=== PATIENT | male | born 1980 | race Caucasian/White ===

== ENCOUNTER 2019-03-21 19:58 | Emergency (ER) | payer OTHER ==
[2019-03-21 20:08] VITALS: BP 107/64; PULSE 89; TEMP 98.9; BMI 32.3
--- NOTE | 2019-03-22 01:35 | PDOC ---
Documentation entered by Iliana Hendricks SCRIBE, acting as scribe for Daina Ramesh MD. Daina Ramesh MD: This documentation has been prepared by the scribe, Iliana Hendricks SCRIBE, under my direction and personally reviewed by me in its entirety. I confirm that the documentation accurately reflects all work, treatment, procedures, and medical decision making performed by me. History of Present Illness - General Chief Complaint: Injury Stated Complaint: HEAD INJURY,SCALP LACERATION History Source: Patient Exam Limitations: No Limitations - History of Present Illness Initial Comments: 03/21/19 21:53 The patient is a 38-year-old male with no reported past medical history who presents to the emergency department with a scalp laceration. The patient reports around 7:00 pm today he was cleaning out his daughters potty, which he stood up he hit his head on the medicine cabinet. The patient reports bleeding from the wound, now complaining of dull pain to the wound site. Denies dizziness , vision changes, nausea, vomiting, chest pain, or shortness of breath. Denies the use of AC or blood thinners. Past History - Past Medical History Allergies/Adverse Reactions: Allergies Allergy/AdvReac Type Severity Reaction Status Date / Time No Known Allergies Allergy Verified 03/21/19 19:59 Home Medications: Ambulatory Orders NK [No Known Home Medication] 03/21/19 Review of Systems - Review of Systems Able to Perform ROS?: Yes Comments:: 03/21/19 21:53 CONSTITUTIONAL: Pt denies Fever, Chills, weakness. HEENT: +head injury. denies vision changes, sore throat RESPIRATORY: Denies cough, sob, hemoptysis CARDIAC: denies chest pain, palpitations, lightheadedness, leg swelling ABD/GI: denies abd pain, nausea, vomiting, blood per rectum, melena, diarrhea : denies dysuria, frequency, discharge MSK: denies back pain, joint swelling SKIN: denies bruising, erythema, rash NEUROLOGICAL: denies headache, numbness, focal weakness, tingling, ataxia, weakness HEMATOLOGICAL: denies anemia, easy bruising, easy bleeding *Physical Exam - Vital Signs Last Vital Signs Temp Pulse Resp BP Pulse Ox 98.9 F 89 18 107/64 100 03/21/19 19:58 03/21/19 19:58 10/01/19 19:58 03/21/19 19:58 03/21/19 19:58 - Physical Exam Comments: 03/21/19 21:53 GENERAL: The patient is awake, alert, and fully oriented, in no acute distress. HEAD: + 2cm full thickness laceration to the right temporal scalp. No other signs of trauma. Procedures - Laceration/Wound Repair Right Temporal Wound Length: to 2.5 cm Wound Explored: clean Wound's Depth, Shape: linear Anesthesia: 1% Lidocaine Amount of Anesthetic (ccs): 2 Wound Repaired With: [place] Progress: Right temporal scalp wound cleansed with hibiclens/ethanol solution and sterilely draped. 2 ml of 1% lidocaine infiltrated into the wound for local anesthesia. Sterile NS used for irrigation. wound closed with 3 chiqui. Bacitracin ointmant placed on surface of wound. Patient tolerated procedure well Discharge - Discharge Information Clinical Impression/Diagnosis: Scalp laceration Qualifiers: Encounter type: initial encounter Qualified Code(s): S01.01XA - Laceration without foreign body of scalp, initial encounter Condition: Stable Disposition: HOME - Follow up/Referral Referrals: Gale Kong DO [Primary Care Provider] - - Patient Discharge Instructions Patient Printed Discharge Instructions: DI for Laceration Repair of the Scalp Additional Instructions: head elevated on extra pillow tonight Tylenol/Motrin/Aleve as needed for pain keep wound dry for the next 2 days after 2 days, can briefly wet area but no immersion until chiqui removed Bacitracin/Neosporin daily to wound have chiqui removed in 7- 10 days return to ER immediately if you severe headache, severe nausea or lightheadedness - Post Discharge Activity
== END 2019-03-21 21:55 | disposition home or self-care (01) ==
LOC: FER 19:58
PROC: 0HQ0XZZ Repair Scalp Skin, External Approach (ICD-10-PCS; principal; 2019-03-21)
DX: S01.01XA Laceration without foreign body of scalp, initial encounter (principal); W22.01XA Walked into wall, initial encounter; Y93.E9 Activity, other interior property and clothing maintenance; Y92.002 Bathroom of unspecified non-institutional (private) residence as the place of occurrence of the external cause
CPT/HCPCS: 12001-25; 99282-25